=== PATIENT | male | born 1990 | race Caucasian/White ===

== ENCOUNTER 2018-06-04 11:30 | Emergency (ER) | payer OTHER ==
[2018-06-04] MEDS: HYDROCODONE/APAP (5/325) TAB PO (12:52)
== END 2018-06-04 13:47 | disposition home or self-care (01) ==
LOC: FTE 11:30
DX: S49.92XA Unspecified injury of left shoulder and upper arm, initial encounter (principal); X58.XXXA Exposure to other specified factors, initial encounter; Y92.9 Unspecified place or not applicable
CPT/HCPCS: 73030; 99283-25